=== PATIENT | male | born 1950 | race Caucasian/White ===

== ENCOUNTER 2022-08-27 08:41 | Day surgery (SDC) | payer MEDICARE, OTHER ==
[~2022-08-27] VITALS: Ht 180.3 cm; Wt 111.4 kg
--- NOTE | ~2022-08-27 | OR ---
[facility] [address], [place] [address] Draft DATE OF OPERATION: 08/27/2022 SURGEON: Brayan Curtis MD PREOPERATIVE DIAGNOSIS: Pansinusitis, bilateral intranasal polypectomy. 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 PROCEDURES: 1. Bilateral gustafson-sinusotomies. 2. Bilateral intranasal polypectomy. PREOP HISTORY: Pool is a 71-year-old male with chronic sinus problems. He has extensive sinus surgery 11 years ago in [place]. He has had continuous sinus infections, unresponsive to appropriate medications. CAT scan has shown sinus opacification. Exam in the office has shown chronic infection and purulence. He is taken to the operating room for the above-mentioned procedures. DESCRIPTION OF PROCEDURE AND FINDINGS: After informed consent, the patient was taken to the operating room, placed in supine position, where general LMA anesthesia was induced. The patient and procedure were verified. The patient received preoperative intranasal oxymetazoline, intravenous Ancef. Preop CT was viewed throughout. The patient was repositioned. Headlight speculum exam of the nasal cavity showed polypoid material in the right middle meatus. This was removed with the Mayra. Anterior ethmoid air cells were opened. Nasofrontal duct was opened. The middle meatal antrostomy was made. All polypoid material was removed and sent to pathology. Bleeding was minimal. Packing was placed on this side. Sen pack in the middle meatus, coated with Neosporin. Trimmed Merocel pack in the nasal cavity. Left side was then inspected by CAT scan. There was much more involvement on this side. Middle meatus was approached, polypoid material removed. The nasal frontal duct opened with the Mayra. Anterior-posterior ethmoid air cells opened, polypoid material removed. The sphenoid sinus was opened, polypoid material removed from the ostium. Middle meatal antrostomy was made with a curving curette. Polypoid material removed from the maxillary sinus. Packing was then placed per the right side. Hemostasis was verified. Pharynx was suctioned clear of blood and secretions. The packing was tied PATIENT NAME: POOL HERR OPERATIVE REPORT DATE OF : 52 REPORT #: [id number] PHYSICIAN: BRAYAN CURTIS MD PCP: XUAN DHILLON PA-C REPORT IS CONFIDENTIAL AND NOT TO BE RELEASED WITHOUT AUTHORIZATION [address] [address] Draft anteriorly over a pad. The patient was then awakened, extubated, and transported to the recovery room in good condition. COMPLICATIONS: No complications. ESTIMATED BLOOD LOSS: Blood loss was around 100 mL. PACKING: Two pieces of Merocel each nostril. SPECIMENS,: Sinonasal contents right and left separately to Pathology. DRAINS: No drains. Brayan Curtis MD GC/MIGUELL /[id number] Copies: ~ PATIENT NAME: POOL HERR OPERATIVE REPORT DATE OF : 52 REPORT #: [id number] PHYSICIAN: BRAYAN CURTIS MD PCP: XUAN DHILLON PA-C REPORT IS CONFIDENTIAL AND NOT TO BE RELEASED WITHOUT AUTHORIZATION
[~2022-08-27 08:41] MED LIST: AMOX TR-K CLV1 EAC1 PO; AVODART0.5 MG PO; DEXAMETHASONE6 MG PO
--- NOTE | 2022-08-29 14:45 | PATH ---
[facility] [address] [place], [place] [address] Signed SPECIMEN(S): A RIGHT NASAL POLYPS SPECIMEN(S): B LEFT NASAL POLYPS SPECIMEN SOURCE: A. RIGHT NASAL POLYPS B. LEFT NASAL POLYPS CLINICAL HISTORY: Pre: Chronic sinusitis, nasal polyps. Post: Bilateral intranasal ethmoidectomy and polypectomy. FINAL PATHOLOGIC DIAGNOSIS: A. Right nasal polyps, submitted: - Fragments of bone and polypoid nasorespiratory mucosa with edema and increased chronic inflammation; see comment. B. Left nasal polyps, submitted: - Fragments of bone and polypoid nasorespiratory mucosa with edema and increased chronic inflammation; see comment. COMMENT: Histologic sections of both fragments show increased chronic inflammation comprised primarily of lymphoplasmacytic cells with few scattered eosinophils (lymphoplasmacytic to eosinophilic ratio of at least 3:1). Polypoid nasorespiratory epithelium with prominent is present. 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 DF:[id number] MICROSCOPIC EXAMINATION: Histologic sections of all submitted blocks are examined by light microscopy. These findings, together with the gross examination, support the pathologic diagnosis. GROSS DESCRIPTION: A. The specimen, labeled and designated "Fandaniele, right nasal polyps," is received in formalin and consists of several pieces of pink-oliva, smooth mucosal tissue that aggregate measure 2.2 x 1.5 x 0.4 cm. Sectioning through the specimen is grossly unremarkable. Entirely submitted in (A1). B. The specimen, labeled and designated "Fanning, left nasal polyps," is received in formalin and consists of numerous pink-oliva, mucosal and bone tissue fragments that aggregate measure 2.5 x 2.5 x PATIENT NAME: RAMON HERR PATHOLOGY DATE OF : 52 REPORT #: [id number] PHYSICIAN: ROSAURA AGUIRRE PCP: XUAN DHILLON PA-C REPORT IS CONFIDENTIAL AND NOT TO BE RELEASED WITHOUT AUTHORIZATION [facility] [address] [place], [place] [address] Signed 0.4 cm. Specimen is left for decalcification in Decal Stat prior to processing. Payment Rep sections are submitted in (B1). JS (under the direct supervision of a pathologist) The Gross Description was prepared using a voice recognition system. The report was reviewed for accuracy; however, sound-alike word errors, addition and/or deletions may occur. If there is any question about this report, please contact Client Services. PERFORMING LABORATORY: The technical component was performed by [employer], [address] [place] [address] (CLIA# [id number]). Professional interpretation was performed by [employer], [facility], [address] [place] [id number] (CLIA#: [id number]) Diagnostician: Beni Méndez DO Pathologist Electronically Signed 08/29/2022 Copies: ~ PATIENT NAME: RAMON HERR PATHOLOGY DATE OF : 52 REPORT #: [id number] PHYSICIAN: ROSAURA AGUIRRE PCP: XUAN DHILLON PA-C REPORT IS CONFIDENTIAL AND NOT TO BE RELEASED WITHOUT AUTHORIZATION
== END 2022-08-27 14:55 | disposition home or self-care (01) ==
LOC: DS 08:41 → OPS 08:41
PROVIDERS: ATTEND Otolaryngology
PROC: 09B Ear, Nose, Sinus, Excision (ICD-10-PCS; 2022-08-27)
PROC: 09B Ear, Nose, Sinus, Excision (ICD-10-PCS; 2022-08-27)
PROC: 09B Ear, Nose, Sinus, Excision (ICD-10-PCS; 2022-08-27)
PROC: 09B Ear, Nose, Sinus, Excision (ICD-10-PCS; principal; 2022-08-27 12:15)
PROC: 09B Ear, Nose, Sinus, Excision (ICD-10-PCS; 2022-08-27 12:15)
DX: J32.4 Chronic pansinusitis (principal); J33.8 Other polyp of sinus; Z79.899 Other long term (current) drug therapy; Z88.5 Allergy status to narcotic agent
CPT/HCPCS: J0131; J0690; J1100; J2001; J2405; J2704; J3010; J7121